=== PATIENT | female | born 2000 | race African-American/Black ===

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

== ENCOUNTER 2022-02-25 14:41 | Emergency (ER) | payer MEDICAID, OTHER ==
[~2022-02-25] VITALS: Ht 167.6 cm; Wt 90.0 kg
[~2022-02-25 14:41] MED LIST changes: -ALBU6.7H2; +ALBU6.7H9
[2022-02-25 16:15] VITALS: BP 124/72
[2022-02-25] MEDS ORDERED: KETOROLAC 30MG/ML VIAL IM ONE (16:15)
[2022-02-25] MEDS ORDERED: DEXAMETHASONE 10 MG/ML VIAL PO ONE (16:15)
[2022-02-25] MEDS ORDERED: PENI500T MT (17:07)
[2022-02-25] MEDS ORDERED: TOPUD MT (17:07)
== END 2022-02-25 18:01 | disposition home or self-care (01) ==
LOC: ER 15:36
DX: J02.0 Streptococcal pharyngitis (principal); J45.909 Unspecified asthma, uncomplicated; Z79.899 Other long term (current) drug therapy
CPT/HCPCS: 87430; 96372; 99283; J1100; J1885

== ENCOUNTER 2025-02-14 14:01 | Emergency (ER) | payer MEDICAID ==
[~2025-02-14] VITALS: Ht 165.1 cm; Wt 100.0 kg
[~2025-02-14 14:01] MED LIST changes: +ALBU6.7H3; -ALBU6.7H9; +AMOX-494 MT; +PENI500T MT; +TOPUD MT
[2025-02-14 14:05] VITALS: O2SAT 100
[2025-02-14 14:16] VITALS: BP 137/94; PULSE 74; RESP 25; TEMP 37.1; O2SAT 100
[2025-02-14] MEDS: DICYCLOMINE 10 MG/5 ML ORAL SYR PO STA (14:41)
[2025-02-14] MEDS: HALOPERIDOL LACTATE 5MG/ML VIAL IM ONE (14:41)
[2025-02-14] MEDS: MAGNESIUM/ALUMINUM HYDROXIDE/SIMETHICONE 30ML UDC PO STA (14:41)
[2025-02-14] MEDS: ONDANSETRON 4MG ODT PO STA (14:41)
[2025-02-14] MEDS: FAMOTIDINE 20MG TABLET PO ONE (14:41)
[2025-02-14 14:44] LABS: BASOPHILS % 0.2 % (0.0-2.0); HEMATOCRIT. 42.6 % (36.0-48.0); HEMOGLOBIN. 13.4 g/dL (12.0-16.0); LYMPHOCYTES % 7.9 % (20.0-50.0); MEAN CORPUSCULAR HGB CONC 31.4 g/dL (31.0-37.0); MEAN PLATELET VOLUME 8.7 fl (7.4-10.4); MONOCYTES % 3.8 % (2.0-8.0); NEUTROPHILS % 88.1 % (40.0-76.0); PLATELET 340 x1000/uL (130-400); RED BLOOD CELL COUNT 4.96 mill/uL (4.2-5.4); RED CELL DISTRIBUTION WIDTH 14.2 % (11.6-14.6); WHITE BLOOD COUNT 16.1 x1000/uL (4.5-11.0)
[2025-02-14 14:49] LABS: CHLORIDE 106 mEq/L (98-107); POTASSIUM 3.5 mEq/L (3.5-5.1); SODIUM 141 mEq/L (136-145)
[2025-02-14 14:51] LABS: CALCIUM 9.7 mg/dL (8.7-10.4); CARBON DIOXIDE 18 mEq/L (21-32)
[2025-02-14 14:56] LABS: CREATININE 0.6 mg/dL (0.6-1.0); GLUCOSE 117 mg/dL (70-105); UREA NITROGEN BLOOD 6 mg/dL (9-23)
[2025-02-14 14:57] LABS: ETHANOL BLOOD 12 mg/dL (<10)
[2025-02-14 14:58] LABS: ALANINE AMINOTRANSFERASE 17 IU/L (10-49); ALBUMIN 5.3 g/dL (3.2-4.8); ASPARTATE AMINOTRANSFERASE 25 IU/L (<34); BILIRUBIN DIRECT 0.1 mg/dL (<=3.0)
[2025-02-14 14:59] LABS: BILIRUBIN TOTAL 0.5 mg/dL (0.1-1.0); PROTEIN TOTAL 8.5 g/dL (6.0-8.3)
[2025-02-14] MEDS ORDERED: SODIUM CHLORIDE 0.9% 1,000 ML IV ONE (15:45)
[2025-02-14] MEDS ORDERED: METOCLOPRAMIDE HCL 10MG/2ML VIAL IV ONE (15:45)
[2025-02-14 15:51] LABS: COLOR URINE YELLOW (YELLOW)
[2025-02-14 15:52] LABS: CLARITY URINE CLOUDY (CLEAR); GLUCOSE URINE NEGATIVE (NEGATIVE)
[2025-02-14 15:53] LABS: NITRITE URINE NEGATIVE (NEGATIVE); OCCULT BLOOD URINE NEGATIVE (NEGATIVE); UROBILINOGEN URINE 0.2 E.U./dL (0.2-1.0)
[2025-02-14 15:54] LABS: LEUKOCYTE ESTERASE URINE 2+ (NEGATIVE)
[2025-02-14 15:56] LABS: KETONES URINE 3+ (NEGATIVE); PROTEIN URINE 1+ (NEGATIVE)
[2025-02-14 15:58] LABS: RBC URINE 0-2 /hpf (0-2)
[2025-02-14 15:59] LABS: BACTERIA URINE 3+; SQUAMOUS EPITHELIAL CELL URINE 1+ /lpf (RARE/1+)
[2025-02-14] MEDS ORDERED: CEFTRIAXONE 2GM/50ML 50 ML IV ONE (16:15)
[2025-02-14 16:56] LABS: HCG SCREEN NEGATIVE
== END 2025-02-14 18:57 | disposition left against medical advice (07) ==
LOC: ER 14:01
DX: R10.12 Left upper quadrant pain (principal); J45.909 Unspecified asthma, uncomplicated; Z79.899 Other long term (current) drug therapy
CPT/HCPCS: 80076; 80048; 81003; 81025; 80320; 84703; 83690; 85025; 36415; 96372; 99284; Q0162; J0696; J1630; J7030; G0480